=== PATIENT | male | born 1960 | race Caucasian/White ===

== ENCOUNTER 2020-06-20 10:54 | Inpatient (IN) | payer BC ==
[~2020-06-20] VITALS: Ht 180.3 cm; Wt 126.2 kg
--- NOTE | ~2020-06-20 | HC ---
[facility] [place] [address] CONSULTATION Name: KALEIGH NESS Room #: 200-I ADM IN M.R.#: [id number] Admission: 06/20/20 Attend Phys: Ezekiel Pastor MD Discharge: Date of : 60 Report #: [id number] THIS REPORT FOR: cc: Pino Townsend MD,Francisco To MD, MD ~ CC: Ezekiel Townsend DATE OF SERVICE: 06/20/2020 HISTORY OF PRESENT ILLNESS: This is a 60-year-old male patient who was seen by me for stroke protocol. I got a call from Dr. Obregon and that he had a patient with a stroke with the last known at 4:00 a.m. He indicated the patient was outside the window for TPA for 3-hour and 4-1/2 hour and I asked him to get a CT angiogram and CT perfusion stat on him to see if there is an area of penumbra, which can potentially qualify him for TPA if penumbra is documented on the basis of recent studies on the wakeup stroke and on the basis of tissue diagnosis. That was ordered. That did not read yet. We have asked the radiologist to read it as soon as possible. I have gone to Radiology Department and I have reviewed it with one of the radiologists and he does not believe there is any penumbra in this patient. Rest of the report will follow. REVIEW OF SYSTEMS: Done carefully. This patient does not have any prior history of stroke. He woke up with the left-sided weakness as well as speech difficulty. He did have some unusual symptoms in the throat. He is progressively becoming better, but his speech still has problem and he still has weakness on the left side. I talked to the in detail and it looks like she saw him well yesterday and when she saw him this morning, he was having these symptoms. Review of systems is also positive for hypertension. PAST MEDICAL HISTORY: Negative for stroke. SOCIAL HISTORY: He is not a smoker. PHYSICAL EXAMINATION: Indicate that he is alert. He is responsive. He can follow simple command. He sometimes takes time to say a few words, but most of the time, he is able to say words, although that portion of the speech is definitely affected, but he says his comprehension is intact. His cranial nerve examination showed only a question of weakness on the left side, but he is weak on the left side, but that is becoming better. He does not appear to have any cerebellar sign. His cardiac examinations appear noncontributory. His respiratory examinations appear also noncontributory. His blood pressure was running some high. It is still somewhat high at about 154/88, but it has come down from 205/94. [address] [address] CONSULTATION Name: KALEIGH NESS Room #: 200-I [facility] IN ..#: [id number] Admission: 06/20/20 Attend Phys: Ezekiel Pastor MD Discharge: Date of : 60 Report #: [id number] DIAGNOSTIC IMAGING: I reviewed his CT and as I am dictating the report, his CT angiogram also came in and it was a normal perfusion study according to the official report. He does have some left internal carotid artery stenosis, but nothing retrievable in the CT angio of the head. In fact, CT angiogram of the head is normal. IMPRESSION: This patient's clinical presentation is consistent with cerebrovascular aneurysm. I do not know where the cerebrovascular aneurysm is clinically, it can be in the brainstem. It can be in the right hemisphere, but he has had speech difficulty, which is somewhat unusual. I have talked to the MRI. I have ordered a stat MRI in this patient. They are going to do it stat. We will look at it what shows. This patient's time of onset is 4 a.m. He is not a candidate for TPA in 3-hour window or 4-1/2 hour window. He is not a candidate for thrombectomy because no thrombus is present in intracranial circulation. I tried to see if he is a candidate for giving him TPA on the basis of tissue diagnosis, but even that time has passed and we have no documentation of any penumbra. Therefore, he is not a candidate for that either. If his MRI shows stroke, I am going to put him on a loading dose of Plavix and aspirin. He already got a liter of fluid. He needs permissive hypertension and we need to keep his blood pressure high. He will be admitted and we will work him up for any further cause of the stroke. I discussed all of it to the patient and the family in detail and we will readdress the situation and talked to them again after we get the report of MRI. Thank you very much for this referral and if you have any question, we will please feel free to contact us and we will evaluate this patient again later on. By: 1424 24 Francisco Tolentino MD /nt
[~2020-06-20 10:54] MED LIST: CENTRUM SILVER1 EAC1 PO
[2020-06-20 11:01] VITALS: BP 205/94
[2020-06-20 11:13] LABS: ABSOLUTE NEUTROPHILS 5.1 thou/uL (1.4-8.2); EOSINOPHILS 2.7 % (0.0-3.0); HEMATOCRIT 44.4 % (42.0-52.0); HEMOGLOBIN 15.5 gm/dL (14.0-18.0); MCH 31.4 pg (26.0-34.0); MCHC 34.9 g/dL (28.0-37.0); MONOCYTES 6.2 % (1.0-8.0); PLATELET COUNT 307 thou/uL (150-400); POLYS 60.1 % (36.0-66.0); RBC 4.93 mil/uL (4.50-6.00); RDW 13.6 % (10.5-14.5); WBC 8.4 thou/uL (4.0-11.0)
[2020-06-20 11:20] LABS: ANION GAP 9 mmol/L (7-16); BUN 14 mg/dL (7-18); CALCIUM 8.4 mg/dL (8.5-10.1); CHLORIDE 103 mmol/L (98-107); CO2 26 mmol/L (21-32); GLUCOSE 193 mg/dL (74-106); POTASSIUM 4.2 mmol/L (3.5-5.1); SODIUM 138 mmol/L (136-145)
[2020-06-20 11:31] LABS: ALBUMIN 3.9 g/dL (3.4-5.0); MAGNESIUM 2.2 mg/dL (1.8-2.4); SGOT 22 U/L (15-37); SGPT 34 U/L (30-65); TOTAL BILIRUBIN 0.4 mg/dL (0.2-1.0); TOTAL PROTEIN 7.6 g/dL (6.4-8.2); TROPONIN-I <0.06 ng/mL (<0.06)
[2020-06-20 12:34] LABS: URINE BILIRUBIN NEGATIVE (Negative); URINE BLOOD 2+ (Negative); URINE CLARITY CLEAR; URINE COLOR YELLOW; URINE GLUCOSE-RANDOM* NEGATIVE (Negative); URINE KETONES TRACE (Negative); URINE LEUKOCYTES-REFLEX NEGATIVE (Negative); URINE NITRITE-REFLEX NEGATIVE (Negative); URINE PROTEIN (DIPSTICK) NEGATIVE (Negative); URINE SPECIFIC GRAVITY >= 1.030 (1.005-1.035); URINE UROBILINOGEN 0.2 E.U./dl (0.2-1.0)
[2020-06-20 12:44] LABS: AMP/METHAMP Negative (Negative); BARBITURATES Negative (Negative); BENZODIAZEPINES Negative (Negative); COCAINE Negative (Negative); METHADONE Negative (Negative); OPIATES Negative (Negative); PCP Negative (Negative)
[2020-06-20] MEDS ORDERED: NOHOMEMEDICATIONS (13:04)
[2020-06-20 13:28] LABS: BACTERIA-REFLEX 1-9 Few /HPF (None Seen); CASTS None Seen /LPF (None Seen); CRYSTALS None Seen /LPF (None Seen); SQUAMOUS 0-3 Few /LPF (0-3); URINE RBC 3-10 Few /HPF (0-2); URINE WBC-REFLEX 0-5 Rare /HPF (0-5)
--- NOTE | 2020-06-20 14:22 | EKG ---
[facility] [place] [address] ELECTROCARDIOGRAM REPORT Name: KALEIGH NESS Room #: [facility]#: [id number] Admission: 06/20/20 Attend Phys: Discharge: Date of : 60 Report #: [id number] THIS REPORT FOR: cc: Pino Townsend MD, Thomas P. MD Couchonnal, Luis F. MD ~ THIS REPORT FOR: //name// [facility] ED Test Date: 2020-06-20 Test Time: 11:32:03 Pat Name: KALEIGH NESS Department: Room: Gender: Rn Lab: [facility] : 1960 Requested By: Dl Obregon Order Number: [id number] MD: Martin Rueda Measurements Intervals [place] Rate: 76 P: 80 MN: 144 QRS: 36 QRSD: 93 T: 85 QT: 366 QTc: 412 Interpretive Statements Sinus rhythm Left atrial enlargement No previous ECG available for comparison Electronically Signed On 06-20-2020 14:22:29 CDT by Martin Rueda [email or web address] <ELECTRONICALLY SIGNED> By: Martin Rueda MD 06/20/20 1422 D: [id number] Martin Rueda MD /MEGAN
[2020-06-20 20:23] VITALS: BP 167/87
[2020-06-20 20:45] VITALS: BP 181/87
[2020-06-21] VITALS: BP 173/89
[2020-06-21 02:34] VITALS: BP 146/76
--- NOTE | 2020-06-21 03:59 | NUR ---
PT IS AN ER ADMIT, PRESENTED WITH SYMPTOMS OF CVA. PT WAS STABLE UPON ARRIVAL TO THE UNIT. NO SIGN OF DISTRESS NOTED IN PT. PT IS ALERT AND ORIENTED, SLIGHT SLURRED SPEECH NOTED WHICH IS IMPROVING. ADMISSION ASSESSMENT, DATA AND EDUCATION COMPLETED. PLAN OF CARE UPDATED. SCHEDULED MEDS ADMINISTERED TO PT. NIH STROKE SCALE DONE WITH PATIENT. PT IS STABLE THROUGH THE NIGHT. ELEVATED BLOOD PRESSURE NOTED WHICH IS OKAY WITH NEUROLOGY. CONTINUE TO MONITIOR PT. NO FURTHER NEEDS AT THIS TIME.
[2020-06-21 06:30] LABS: CHOLESTEROL 182 mg/dL (<200); HDL CHOLESTEROL 40 mg/dL (>40); LDL CHOLESTEROL 86 mg/dL (<100); TC:HDL 4.6 Ratio (Not establshd); TRIGLYCERIDE 280 mg/dL (<150); VLDL 56 mg/dL (<40)
[2020-06-21 06:38] LABS: SERUM ASSESSMENT Clear
[2020-06-21 07:25] VITALS: BP 152/88
[2020-06-21 11:15] VITALS: BP 149/90
--- NOTE | 2020-06-21 12:38 | 2DMMODE ---
[facility] [place] [address] 2 D/M-MODE ECHOCARDIOGRAM Name: KALEIGH NESS Room #: 200-I ADM IN [facility].#: [id number] Admission: 06/20/20 Attend Phys: Ezekiel Pastor MD Discharge: Date of : 60 Report #: [id number] THIS REPORT FOR: cc: Pino Townsend MD, Thomas P. MD Park, Jin S. MD ~ APPROVED REPORT Study performed: 06/21/2020 11:30:27 EXAM: Comprehensive 2D, Doppler, and color-flow Echocardiogram Patient Location: Bedside Room #: 200 Status: routine BSA: 2.42 HR: 66 bpm BP: 152/88 mmHg Rhythm: NSR Other Information Study Quality: Good Indications CVA/TIA Hypertension/HDD Echo Enhancing Agent Indication: Rule out Shunt Agent(s) / Amount(s) Used: Agitated Saline 7 cc 2D Dimensions RVDd: 35.22 mm IVSd: 13.29 (7-11mm) LVOT Diam: 22.70 (18-24mm) LVDd: 47.51 mm PWd: 12.94 (7-11mm) Ascending Ao: 29.12 (22-36mm) LVDs: 30.78 (25-40mm) Aortic Root: 30.27 mm IVC: 14.00 mm Volumes Left Atrial Volume (Systole) Single Plane 4CH: 46.71 mL Single Plane 2CH: 84.40 mL LA ESV Index: 31.00 mL/m2 Aortic Valve [facility] [address] [place] [address] 2 D/M-MODE ECHOCARDIOGRAM Name: KALEIGH NESS Room #: 200-I [facility] IN ..#: [id number] Admission: 06/20/20 Attend Phys: Ezekiel Pastor, Discharge: Date of : 60 Report #: [id number] AoV Peak Jordan.: 1.20 m/s AO Peak Gr.: 5.80 mmHg LVOT Max P.17 mmHg LVOT Max V: 0.89 m/s PRAVEEN Vmax: 2.99 cm2 Mitral Valve E/A Ratio: 1.6 MV Decel. Time: 269.86 ms MV E Max Jordan.: 0.70 m/s MV A Jordan.: 0.43 m/s MV PHT: 78.26 ms IVRT: 161.48 ms Pulmonary Valve PV Peak Jordan.: 0.86 m/s PV Peak Gr.: 2.99 mmHg Pulmonary Vein P Vein S: 0.62 m/s P Vein A: 0.28 m/s P Vein D: 0.33 m/s P Vein A Dur.: 120.0 msec P Vein S/D Ratio: 1.88 Left Ventricle The left ventricle is normal size. There is normal LV segmental wall motion. Mild concentric left ventricular hypertrophy. The left ventricular systolic function is normal. The left ventricular ejection fraction is within the normal range. LVEF is 60-65%. Grade II - pseudonormal filling dynamics. Right Ventricle The right ventricle is normal size. The right ventricular systolic function is normal. Atria The left atrium size is normal. Injection of bubbles documented no interatrial shunt. The right atrium size is normal. Aortic Valve The aortic valve is normal in structure. No aortic regurgitation is present. There is no aortic valvular stenosis. Mitral Valve The mitral valve is normal in structure. There is no mitral valve regurgitation noted. No evidence of mitral valve stenosis. Tricuspid Valve The tricuspid valve is normal in structure. There is no tricuspid [facility] [address] [place] [address] 2 D/M-MODE ECHOCARDIOGRAM Name: KALEIGH NESS [facility] IN [facility]#: [id number] Admission: 06/20/20 Attend Phys: Ezekiel Pastor, Discharge: Date of : 60 Report #: [id number] valve regurgitation noted. Pulmonic Valve The pulmonary valve is normal in structure. There is no pulmonic valvular regurgitation. Great Vessels The aortic root is normal in size. IVC is normal in size and collapses >50% with inspiration. Pericardium There is no pericardial effusion. <Conclusion> The left ventricle is normal size. Mild concentric left ventricular hypertrophy. The left ventricular systolic function is normal. Grade II - pseudonormal filling dynamics. The right ventricle is normal size. The left atrium size is normal. Injection of bubbles documented no interatrial shunt. The aortic valve is normal in structure. There is no mitral valve regurgitation noted. There is no tricuspid valve regurgitation noted. <ELECTRONICALLY SIGNED> By: Óscar Noriega MD 06/21/20 1237 1237 1237 Óscar Noriega MD /INF
--- NOTE | 2020-06-21 14:27 | NUR ---
AAOX4. C/O LOSS OF DEXTERITY IN LEFT HAND, COMMUNITY REPRESENTATIVE STRONG. PREDOMINANT SYMPTOM IS DYSARTHRIA. MODERATE FACIAL DROOPING ON THE LEFT. SR PER TELE. WILL CONTINUE TO FOLLOW CLOSELY.
[2020-06-21 16:10] VITALS: BP 154/107
[2020-06-21 19:18] VITALS: BP 185/95
[2020-06-22 01:11] LABS: GLYCOHEMOGLOBIN (HGB A1C) 6.2 % (4.8-5.6)
[2020-06-22 03:43] VITALS: BP 185/75; BP 99/33
--- NOTE | 2020-06-22 04:21 | NUR ---
ASSUMED PT CARE AT 1900. PT IS SLEEPING UPON ARRIVAL TO ROOM. NO SIGN OF DISTRESS NOTED IN PT. PT WOKE UP AND STATED THAT HE WAS FEELING A LITTLE BIT WORSE THAN HE DID THE DAY BEFORE. PT IS ALERT AND ORIENTED. NO SIGN OF DISTRESS NOTED. DENIES ANY PAIN. SCHEDULED MEDS ADMINISTERED TO PATIENT. CONTINUE TO MONITOR PT. NO ACUTE EVENTS OVERNIGHT. NO FURTHER NEEDS AT THIS.
[2020-06-22 07:30] VITALS: BP 142/76
--- NOTE | 2020-06-22 12:45 | NUR ---
PATIENT SEEN BY DR. CHAVES THIS DATE AND HAS BEEN ACCEPTED FOR ACUTE REHEB STAY PENDING INSURANCE AUTHORIZATION. AUTHORIZATION REQUESTED FROM INSURANCE THIS DATE AND INFORMATION FAXED FOR REVIEW. WILL AWAIT DECISION. GENERAL CONTRACTOR INFORMED. THANK YOU FOR THIS REFERRAL.
[2020-06-22 13:15] VITALS: BP 183/95
[2020-06-22 16:00] VITALS: BP 163/79
--- NOTE | 2020-06-22 18:41 | NUR ---
ASSUMMED PT CARE AT APPROXIMATELY 0700. PT A&O X4. FORGETFUL AT TIMES. ASSESSMENT CHARTED. FALL PRECAUTIONS IN PLACE. PT DENIES HAVING CHEST PAIN. PT DENIES HAVING SOB. PT DENIES HAVING ACUTE PAIN. NIH SCALE ASSESSED AND CHARTED. EDUCATED PT ABOUT POC. PT AND PT'S FAMILY STATED UNDERSTANDING AND DENIED HAVING FURTHER QUESTIONS. INFORMED DR. GLORIA MCDUFFIE OF US CAROTIDS RESULTS. VITAL SIGNS STABLE PER PARAMETERS SET BY NEURO. PT UP TO CHAIR THROUGHOUT SHIFT. PT AMBULATING C STANDBY ASSIST. PT COMFORTABLE. PT DENIES HAVING FURTHER CONCERNS. AWAITING 5N APPROVAL.
[2020-06-22 19:40] VITALS: BP 145/68
[2020-06-23 04:15] VITALS: BP 128/76
--- NOTE | 2020-06-23 04:47 | NUR ---
Assumed pt care at 1900. Pt is sleeping in chair but arousable. No sign of distress noted in pt. Denies any pain. NIH stroke scale assessment completed with decrease use in left hand movement-baseline since stroke. Pt continues to perform hand exercises to help with hand movement. Pt is alert and oriented. Assessment completed and documented. Scheduled meds administered to pt. Continue to monitor. No further needs at this time.
[2020-06-23 07:35] VITALS: BP 126/72
[2020-06-23 11:30] VITALS: BP 149/93
[2020-06-23] MEDS ORDERED: ASPIRIN325 PO (12:48)
[2020-06-23] MEDS ORDERED: LIPITOR 20 MG T20 M1 PO (12:48)
[2020-06-23] MEDS ORDERED: PLAVIX 75 MG TA75 M1 PO (12:48)
[2020-06-23] MEDS ORDERED: TYLENOL325 MG PO (12:48)
[2020-06-23] MEDS ORDERED: NEURONTIN 300M300 M2 PO (12:48)
--- NOTE | 2020-06-23 14:19 | NUR ---
Patient accepted to [facility] they rec auth today. plan dc today.
--- NOTE | 2020-06-24 07:54 | HC ---
[facility] [place] [address] CONSULTATION Name: KALEIGH NESS Room #: 200-I [facility] [place] ..#: [id number] Admission: 06/20/20 Attend Phys: Ezekiel Pastor MD Discharge: 06/23/20 Date of : 60 Report #: [id number] THIS REPORT FOR: cc: Pino Townsend MD, Thomas P. MD Forman, John M. MD ~ CC: Ezekiel Townsend DATE OF SERVICE: 06/23/2020 We were asked to see the patient by Dr. Tolentino. The patient is a 60-year-old with a recent stroke. HISTORY OF PRESENT ILLNESS: The patient presented Saturday morning with thickening and the slack feeling of the throat. He also has weakness of the left arm and hand. The patient states that he has had some difficulty speaking and swallowing, but he is compensating for this. In addition, he states that upper extremity weakness has not improved. We note that a CT scan was done that shows no significant right carotid lesion. There is a 50% left internal carotid stenosis and MRI shows a small ischemic infarct in the posterosuperior aspect of the right basal ganglia, likely involving the posterior aspect of the posterior limb of the right internal capsule. The patient states that he may have prediabetes. He is on no medication at home. He had seen a primary physician who had suggested taking an antihypertensive, but the patient has not been taking any medication. The patient had taken aspirin as a self-prescribed drugs but stopped several years ago. SOCIAL HISTORY: The patient works at [employer] in the [employer] Department. Smoking history, the patient states he smoked from age 15 until approximately 25 years ago age 35 and quit when his son was born, but restarted several years ago until quitting a month ago. ALLERGIES: PENICILLIN. FAMILY HISTORY: Negative for stroke. The patient states his father of congestive heart failure. REVIEW OF SYSTEMS: CONSTITUTIONAL: No fever or chills, weight change. EYES: Wears glasses. No vision changes. [facility] [address] [place] [address] CONSULTATION Name: KALEIGH NESS Room #: 200-I [facility]#: [id number] Admission: 06/20/20 Attend Phys: Ezekiel Pastor MD Discharge: 06/23/20 Date of : 60 Report #: [id number] HEENT: Denies headache. Denies hearing problems, sinus drainage. RESPIRATORY: Denies cough, shortness of breath. CARDIAC: Denies angina. Denies palpitations. GASTROINTESTINAL: Denies nausea, vomiting, diarrhea, or blood. GENITOURINARY: Denies urgency, frequency, burning, blood. MUSCULOSKELETAL: No specific bone or joint problems. SKIN: No rash or infection. NEUROLOGIC: As mentioned in the HPI, dysarthria and left upper extremity weakness. ENDOCRINE: No goiter, no tremor. PHYSICAL EXAMINATION: VITAL SIGNS: Temperature 36.4, heart rate 62, respiratory rate 18, blood pressure 126/72, pulse ox 97 on room air. GENERAL: The patient is sitting in chair comfortable and easily engaged in conversation. HEENT: No scleral icterus, no arcus. NECK: No mass. I hear no bruit. CHEST: Clear to auscultation. HEART: Rhythm regular, no murmurs. ABDOMEN: Soft, somewhat protuberant, no mass. EXTREMITIES: No clubbing, cyanosis or edema. We note weakness of the left upper extremity with predominant distal motor skill loss. Speech is with somewhat of a slurred component, but no word finding problems. MUSCULOSKELETAL: No asymmetry or deformity. SKIN: No rash or infection. IMPRESSION: The patient has had a stroke, right basal ganglia, the right carotid system is relatively normal with no obvious source. The left side has a smooth 60% lesion. I would be hesitant to recommend surgery at this stage for this problem as it does not correlate with the patient's lesion, rather medical management including antiplatelet drug would be appropriate. I will discuss the case with Dr. Tolentino. If there is some indecision, then we could obtain an arteriogram to get better data, but the absence of some other finding seems that medical management and rehabilitation will be appropriate at this stage. Thank you for the consult. <ELECTRONICALLY SIGNED> By: Adam Garcia MD 06/24/20 [id number] Adam Garcia MD /nt
== END 2020-06-23 14:23 | DRG 66 ==
LOC: ER 10:54 → 2N 16:11 → EROBS 16:11 → 2N 20:23 → 3W 06-21 14:41 → 2N 06-21 14:52
PROVIDERS: Emergency Medicine; Psychiatry & Neurology Neuromuscular Medicine; ADMIT Internal Medicine; ATTEND Internal Medicine
DX: I63.89 Other cerebral infarction (principal); E78.5 Hyperlipidemia, unspecified; I10 Essential (primary) hypertension; R73.9 Hyperglycemia, unspecified; R31.29 Other microscopic hematuria; G62.9 Polyneuropathy, unspecified; R73.03 Prediabetes; Z88.0 Allergy status to penicillin; Z87.891 Personal history of nicotine dependence
CPT/HCPCS: 10081

== ENCOUNTER 2020-06-23 13:06 | Inpatient (IN) | payer BC ==
[~2020-06-23] VITALS: Ht 180.3 cm; Wt 125.8 kg
--- NOTE | ~2020-06-23 | PLAN ---
[facility] [place] [address] REHAB UNIT PLAN OF CARE Name: KALEIGH NESS Room #: 510-P ADM IN M.R.#: [id number] Admission: 06/23/20 Attend Phys: Levon Peters MD Discharge: Date of : 60 Report #: [id number] THIS REPORT FOR: //name// CC: Levon Townsend DATE OF SERVICE: 06/24/2020 PROGRESS NOTE AND OVERALL PLAN OF CARE SUBJECTIVE: The patient was seen in followup yesterday. He was in no distress. He was alert and pleasant. Neuro exam appeared unchanged from before, although I felt that his speech was a little bit better with a little less dysarthria. He continues to have significant left upper extremity clumsiness. We had a long discussion regarding the type of stroke he had, its location and his prognosis. Functionally, he has been working in therapies with transfer supervision level, gait with standby assist 600 feet without an assistive device. He started working on stairs. In occupational therapy, lower body dressing is min assist, upper body dressing is min assist. In speech therapy, he has [id number] expressive deficits. He has functional comprehension. He does have some problems with managing his secretions, although it seemed a little better for me in followup. He has functional working memory. As far as his swallowing, he is on a regular diet with thin liquids with mild dysphagia and recommendations as noted. ASSESSMENT: 1. Acute right basal ganglia infarct. 2. Left-sided weakness, upper extremity greater than lower extremity with definite left sided coordination deficits. 3. Slurred speech with facial droop, some problems with drooling, which appears to be improving. 4. History of premorbid peripheral neuropathy. 5. Left upper extremity edema. Working on decreasing this with fluid mobilization. 6. Permissive hypertension. 7. Prediabetes. 8. History of hyperlipidemia. 9. Left carotid stenosis of the internal carotid artery. 10. Incidental thyroid nodule. PLAN: The overall plan of care is based on the preadmission screen, post-admission physician evaluation and information garnered from therapy assessments. 1. Estimated length of stay is 10-14 days. 2. Medical prognosis is reasonably good. 3. Anticipated interventions includes the interdisciplinary acute inpatient [facility] [address] [place] [address] REHAB UNIT PLAN OF CARE Name: KALEIGH NESS Claire Room #: 510-P [facility] IN [facility]#: [id number] Admission: 06/23/20 Attend Phys: Levon Peters MD Discharge: Date of : 60 Report #: [id number] rehabilitation program. 4. Anticipated functional outcomes would be for the patient to become modified independent with transfers, mobility, ADLs, improved coordination of that upper extremity, so he can be independent with basic dressing activities and improved oral motor coordination to decrease drooling and improve his word finding and dysarthria. 5. Discharge destination would be back home with his . 6. Expected therapy by discipline includes PT, OT and speech 1 hour per day each five days a week throughout the duration of the acute inpatient rehabilitation stay. By: 1601 17 Levon Peters MD /nt
--- NOTE | ~2020-06-23 | H ---
[facility] [place] [address] HISTORY AND PHYSICAL Name: KALEIGH NESS Room #: 510-P ADM IN M.R.#: [id number] Admission: 06/23/20 Attend Phys: Levon Peters MD Discharge: Date of : 60 Report #: [id number] THIS REPORT FOR: cc: Pino Townsend MD, Thomas P. MD Smithson, David G. MD ~ CC: Levon Townsend DATE OF SERVICE: 06/23/2020 HISTORY AND PHYSICAL AND POST-ADMISSION PHYSICIAN EVALUATION HISTORY OF PRESENT ILLNESS: The patient is a 60-year-old male who was admitted with a right basal ganglia CVA to [facility]. He initially presented with left sided weakness, slurred speech, and facial droop. MRI confirmed a right basal ganglia acute infarct. Neurology was consulted. Ultrasound of the carotid showed normal right internal carotid artery with left ICA with 50-69% stenosis. He has an incidental thyroid nodule. Neurology was closely involved and recommended acute in-hospital inpatient rehabilitation for further monitoring and to try to maximize his functional independence. He is to continue on dual antiplatelet therapy. PAST MEDICAL HISTORY, SOCIAL HISTORY, HABITS, ALLERGIES: Please see the history and physical documentation. MEDICATIONS: Per the MAR. REVIEW OF SYSTEMS: No complaints of chest pain, shortness of breath or abdominal discomfort. Please see the full review of systems. PHYSICAL EXAMINATION: GENERAL: A pleasant, overweight white male in no obvious distress. VITAL SIGNS: Afebrile, vital signs were stable. Alert, oriented x 3 with some slurring of speech. CHEST: Sounded clear to auscultation. CARDIAC: Regular rate and rhythm. ABDOMEN: Bowel sounds positive, nontender, exogenous obesity. GENITOURINARY AND RECTAL: Deferred. NEUROLOGIC: EOMs appeared to be intact. I could not detect any obvious visual field neglect. He does have slurring of his speech, left facial droop, problems with articulation. He has had some problems with managing his saliva out of the left side of his mouth. EXTREMITIES: He has functional range of motion and strength of the right upper and right lower extremity. Left upper extremity reveals significant weakness, a grade 3 to 3+ with definite decreased coordination and definite problems with [facility] [address] [place] [address] HISTORY AND PHYSICAL Name: KALEIGH NESS Room #: 510-P [facility] IN [facility].#: [id number] Admission: 06/23/20 Attend Phys: Levon Peters MD Discharge: Date of : 60 Report #: [id number] fine finger dexterity is unable to oppose thumb to fingertips and has definite clumsiness of the left upper extremity. Left lower extremity strength is better at least a grade 4+/5. Tone is slightly decreased. Sensation appeared to be intact to simultaneous stimulation. He is able to sit to stand with min assist. Some decreased balance needs assistance for lower body dressing. He does have some edema of that left upper extremity. ASSESSMENT: A 60-year-old male with the following problem list: 1. Acute right basal ganglia infarct. 2. Left-sided weakness, upper extremity greater than lower extremity with definite left-sided coordination deficits. 3. Slurred speech with facial droop. 4. History of premorbid peripheral neuropathy. 5. Left upper extremity edema. 6. Permissive hypertension. 7. Prediabetes is noted. 8. History of hyperlipidemia. 9. Left ICA carotid stenosis. 10. Incidental thyroid nodule with ultrasound followup recommended. PLAN: The patient has been admitted for acute in-hospital inpatient rehabilitation. From a postadmission physician evaluation perspective, there are no relevant changes since the preadmission screening. Please see the above review of prior and current medical and functional conditions and comorbidities. Please see the patient's previous and current functional status. As far as risk of complications, the patient has multiple medical comorbidities as noted above. Initial plan of care involves the interdisciplinary acute inpatient rehabilitation program. Measurable functional goals would be for the patient to become modified independent with transfers, mobility and ADLs, so that he can hopefully return back to his prior living situation. Prognosis is reasonably good with estimated length of stay probably around 10 days up to 14 days if needed. Potential barriers would include his multiple medical comorbidities and decreased functional status. The patient meets diagnostic criteria for an acute in-hospital inpatient rehabilitation stay. He meets the medical necessity criteria and Neurology's input is appreciated. He has the tolerance for therapies and has appropriate discharge goals back to the home setting. By: [id number] Levon Peters MD /nt
[~2020-06-23 13:06] MED LIST changes: +ASPIRIN325 PO; +LIPITOR 20 MG T20 M1 PO; +NEURONTIN 300M300 M2 PO; +NOHOMEMEDICATIONS; +PLAVIX 75 MG TA75 M1 PO; +TYLENOL325 MG PO
[2020-06-23 14:30] VITALS: BP 158/76
[2020-06-23 20:37] VITALS: BP 155/76
[2020-06-23 22:24] VITALS: BP 155/76
[2020-06-24] VITALS: BP 157/94
[2020-06-24 04:58] VITALS: BP 143/91
[2020-06-24 06:03] LABS: HEMATOCRIT 40.5 % (42.0-52.0); HEMOGLOBIN 13.8 gm/dL (14.0-18.0); MCH 30.7 pg (26.0-34.0); MCHC 34.1 g/dL (28.0-37.0); MCV 90.2 fL (80.0-100.0); RBC 4.49 mil/uL (4.50-6.00); RDW 13.6 % (10.5-14.5); WBC 6.7 thou/uL (4.0-11.0)
[2020-06-24 06:22] LABS: CREATININE 0.8 mg/dL (0.7-1.3); POTASSIUM 3.8 mmol/L (3.5-5.1)
[2020-06-24 08:00] VITALS: BP 145/92
[2020-06-24 08:38] VITALS: BP 145/92
[2020-06-24 19:45] VITALS: BP 158/71
[2020-06-25 08:00] VITALS: BP 131/70
[2020-06-25 08:15] VITALS: BP 131/70
[2020-06-25 19:36] VITALS: BP 122/76
[2020-06-26 08:23] VITALS: BP 139/81
[2020-06-26 19:20] VITALS: BP 151/69
[2020-06-27 08:45] VITALS: BP 141/78
[2020-06-27 19:50] VITALS: BP 133/76
[2020-06-28 07:45] VITALS: BP 143/67
[2020-06-28 19:07] VITALS: BP 145/61
[2020-06-29 08:00] VITALS: BP 161/74
[2020-06-29 19:05] VITALS: BP 145/83
[2020-06-30 09:11] VITALS: BP 123/74
[2020-06-30 21:03] VITALS: BP 132/68
[2020-07-01] MEDS ORDERED: PLAVIX 75 MG TA75 M1 PO (08:56)
[2020-07-01] MEDS ORDERED: ASPIR 8181 MG PO (08:56)
[2020-07-01] MEDS ORDERED: LIPITOR 20 MG T20 M1 PO (08:56)
[2020-07-01] MEDS ORDERED: NEURONTIN 300M300 M2 PO (08:56)
[2020-07-01] MEDS ORDERED: COLACE100 MG PO (08:56)
[2020-07-01] MEDS ORDERED: VITAMIN B-12500 MCG PO (08:56)
[2020-07-01 09:49] VITALS: BP 132/68
[2020-07-01 13:26] VITALS: BP 132/68
== END 2020-07-01 16:45 | disposition home or self-care (01) | DRG 56 ==
PROVIDERS: Nurse Practitioner Family; ADMIT Physical Medicine & Rehabilitation; ATTEND Physical Medicine & Rehabilitation
DX: G81.94 Hemiplegia, unspecified affecting left nondominant side (principal); I63.9 Cerebral infarction, unspecified; E78.00 Pure hypercholesterolemia, unspecified; R47.1 Dysarthria and anarthria; I65.22 Occlusion and stenosis of left carotid artery; E11.42 Type 2 diabetes mellitus with diabetic polyneuropathy; E78.5 Hyperlipidemia, unspecified; I10 Essential (primary) hypertension; R29.810 Facial weakness; E04.1 Nontoxic single thyroid nodule; E53.8 Deficiency of other specified B group vitamins; G47.00 Insomnia, unspecified; F32.9 Major depressive disorder, single episode, unspecified; F43.20 Adjustment disorder, unspecified; Z88.0 Allergy status to penicillin; Z87.891 Personal history of nicotine dependence; Z71.6 Tobacco abuse counseling; Z79.899 Other long term (current) drug therapy
CPT/HCPCS: 10112